=== PATIENT | male | born 1985 ===

== ENCOUNTER 2017-11-23 11:45 | Emergency (ER) | payer OTHER ==
[2017-11-23 12:24] VITALS: RESP 18
--- NOTE | 2017-11-23 13:09 | ED ---
General Adult HPI - General Chief complaint: Urogenital Stated complaint: Pain when urinating Time Seen by Provider: 11/23/17 12:28 Source: patient, RN notes reviewed Mode of arrival: ambulatory Limitations: no limitations - History of Present Illness Initial comments: 31-year-old male presents to the emergency department with a chief complaint of pain with urination. He states that he has had this for the past 3 or 4 days. He was seen at [facility] on Thursday where he underwent STD testing. He states that his results are not back but he was given treatment. He does not believe that this is what is causing his issue. He states he only has pain in the penis. There is no pain in the bladder no pain in the back. He states that he has never had this issue before. He states that he was concerned due to the continued symptoms so he thought that he should be seen. Patient denies any recent fever, chills, shortness of breath, chest pain, back pain, abdominal pain , nausea vomiting, numbness or tingling, dysuria or hematuria, constipation or diarrhea, headaches or visual changes, or any other current symptoms. - Related Data Allergies Allergy/AdvReac Type Severity Reaction Status Date / Time No Known Allergies Allergy Verified 11/23/17 12:24 Review of Systems ROS Statement: Those systems with pertinent positive or pertinent negative responses have been documented in the HPI. ROS Other: All systems not noted in ROS Statement are negative. Past Medical History Past Medical History: Hypertension Additional Past Medical History / Comment(s): hep C History of Any Multi-Drug Resistant Organisms: None Reported Past Surgical History: No Surgical Hx Reported Past Psychological History: No Psychological Hx Reported Smoking Status: Current every day smoker Past Alcohol Use History: None Reported Past Drug Use History: None Reported General Exam Limitations: no limitations General appearance: alert, in no apparent distress ENT exam: Present: mucous membranes moist Respiratory exam: Present: normal lung sounds bilaterally. Absent: respiratory distress, wheezes, rales, rhonchi, stridor Cardiovascular Exam: Present: regular rate, normal rhythm, normal heart sounds. Absent: systolic murmur, diastolic murmur, rubs, gallop, clicks GI/Abdominal exam: Present: soft, normal bowel sounds. Absent: distended, tenderness, guarding, rebound, rigid exam: Present: normal inspection, vertical testicular lie, circumcision. Absent: testicular tenderness, urethral discharge, scrotal swelling Extremities exam: Present: normal inspection Neurological exam: Present: alert, oriented X3 Psychiatric exam: Present: normal affect, normal mood Skin exam: Present: warm, dry, intact, normal color. Absent: rash Course Vital Signs 11/23/17 12:21 Temperature 98.7 F Pulse Rate 70 Respiratory 18 Rate Blood Pressure 120/47 O2 Sat by Pulse 100 Oximetry Medical Decision Making - Medical Decision Making 31-year-old male presents emergency department with a chief complaint of pain with urination. At this time Gen. exam shows a small cyst to the end of the urethra however no other abnormality noted. Since patient's pain is localized to just the penis we will have him follow-up with urology for possible etiologies for symptoms. Urinalysis is negative and he is currently waiting on a CT results from a different hospital. Patient is in agreement this plan. All questions have been answered. Patient will be discharged. - Lab Data Lab Results 11/23/17 Range/Units 13:30 Urine Color Yellow Urine Appearance Clear (Clear) Urine pH 8.0 (5.0-8.0) Ur Specific [place] 1.019 (1.001-1.035) Urine Protein Negative (Negative) Urine Glucose (UA) Negative (Negative) Urine Ketones Negative (Negative) Urine Blood Negative (Negative) Urine Nitrite Negative (Negative) Urine Bilirubin Negative (Negative) Urine Urobilinogen <2.0 (<2.0) mg/dL Ur Leukocyte Esterase Negative (Negative) Disposition Clinical Impression: Dysuria Disposition: HOME SELF-CARE Condition: Stable Instructions: Dysuria (ED) Additional Instructions: Please use medication as discussed. Please follow up with family doctor if symptoms have not improved over the next two days. Please return to the emergency room if your symptoms increase or worsen or for any other concerns. Is patient prescribed a controlled substance at d/c from ED?: No Referrals: Bonifacio Mcrae MD [Primary Care Provider] - 1-2 days Eugene Higgins MD [STAFF PHYSICIAN] - 1-2 days Time of Disposition: 14:07
[2017-11-23 13:50] LABS: Appearance,Urine Clear (Clear); Bilirubin,Urine Negative (Negative); Blood,Urine Negative (Negative); Color,Urine Yellow; Glucose,Urine (UA) Negative (Negative); Ketones,Urine Negative (Negative); Leukocyte Esterase,Urine Negative (Negative); Nitrite,Urine Negative (Negative); Protein,Urine Negative (Negative); Specific Gravity,Urine 1.019 (1.001-1.035); Urobilinogen,Urine <2.0 mg/dL (<2.0)
[2017-11-23 14:16] VITALS: BP 116/56; PULSE 72; TEMP 98.9
== END 2017-11-23 14:15 | disposition home or self-care (01) ==
LOC: EC 11:45
DX: R30.0 Dysuria (principal); F17.200 Nicotine dependence, unspecified, uncomplicated
CPT/HCPCS: 81003; 87086; 99283

== ENCOUNTER 2018-01-05 17:16 | Emergency (ER) | payer OTHER ==
[2018-01-05 17:27] VITALS: RESP 18; TEMP 98
[2018-01-05] MEDS ORDERED: SODIUM CHLORIDE 0.9% 1,000 ML with MVI, ADULT NO.4 WITH VIT K 10 ML, THIAMINE 100 MG, F... IV ONE ×4 (17:44)
--- NOTE | 2018-01-05 17:48 | ED ---
Alcohol HPI - General Chief Complaint: Alcohol Stated Complaint: overdose Time Seen by Provider: 01/05/18 17:16 Source: patient, EMS, RN notes reviewed Mode of arrival: EMS Limitations: no limitations - History of Present Illness Initial Comments: This is a 32-year-old male with a history of hep C as well as cirrhosis stage I who states he started drinking alcohol again about 3 months ago who today apparently drank a pint and a liter of liquor followed by 10 phenobarbital 10 trazodone and some temazepam. He states he doesn't want to drink anymore as try to help with some withdrawal. His girlfriend called EMS and brought here for evaluation. He denies any suicidal thought or ideation he has some mild lower abdominal pain. No nausea no vomiting fevers chills sweats no other symptoms. No trauma reported. MD Complaint: alcohol intoxication - Related Data Home Medications Medication Instructions Recorded Confirmed FLUoxetine HCL 40 mg PO DAILY 01/05/18 01/05/18 Losartan Potassium 100 mg PO DAILY 01/05/18 01/05/18 Multivitamins, Thera [Multivitamin 1 tab PO DAILY 01/05/18 01/05/18 (formulary)] PHENobarbital 30 mg PO DAILY 01/05/18 01/05/18 Temazepam [Restoril] 15 mg PO HS 01/05/18 01/05/18 buPROPion XL [Wellbutrin Xl] 300 mg PO DAILY 01/05/18 01/05/18 busPIRone HCL 15 mg PO QID 01/05/18 01/05/18 traMADol HCL [Ultram] 50 mg PO TID PRN 01/05/18 01/05/18 Allergies Allergy/AdvReac Type Severity Reaction Status Date / Time No Known Allergies Allergy Verified 01/05/18 17:30 Review of Systems ROS Statement: Those systems with pertinent positive or pertinent negative responses have been documented in the HPI. ROS Other: All systems not noted in ROS Statement are negative. Past Medical History Past Medical History: Hypertension Additional Past Medical History / Comment(s): hep C History of Any Multi-Drug Resistant Organisms: None Reported Past Surgical History: No Surgical Hx Reported Past Psychological History: Anxiety, PTSD Smoking Status: Former smoker Past Alcohol Use History: Daily Past Drug Use History: None Reported General Exam - General Exam Comments Initial Comments: Is a well-developed well-nourished awake alert but somewhat lethargic male he does have the smell of alcohol conjoiners on his breath Limitations: no limitations General appearance: alert, lethargic Head exam: Present: atraumatic, normocephalic, normal inspection Eye exam: Present: normal appearance, PERRL, EOMI. Absent: scleral icterus, conjunctival injection, periorbital swelling ENT exam: Present: normal exam, mucous membranes moist Neck exam: Present: normal inspection. Absent: tenderness, meningismus, lymphadenopathy Respiratory exam: Present: normal lung sounds bilaterally. Absent: respiratory distress, wheezes, rales, rhonchi, stridor Cardiovascular Exam: Present: regular rate, normal rhythm, normal heart sounds. Absent: systolic murmur, diastolic murmur, rubs, gallop, clicks GI/Abdominal exam: Present: soft, normal bowel sounds. Absent: distended, tenderness, guarding, rebound, rigid Extremities exam: Present: normal inspection, full ROM, normal capillary refill. Absent: tenderness, pedal edema, joint swelling, calf tenderness Back exam: Present: normal inspection Neurological exam: Present: alert, oriented X3, CN II-XII intact Psychiatric exam: Present: normal affect, normal mood Skin exam: Present: warm, dry, intact, normal color. Absent: rash Course Vital Signs 01/05/18 01/05/18 17:26 18:30 Temperature 98.0 F Pulse Rate 104 H 80 Respiratory 18 18 Rate Blood Pressure 123/81 123/81 O2 Sat by Pulse 94 L Oximetry Medical Decision Making - Medical Decision Making Reevaluation patient reveals he remains awake more alert he is able ably without difficulty. Patient is refusing to stay for any further workup at this time he will be leaving his medical advice. He is fully aware of the situation and excess responsibility. The patient did leave with a ride. - Lab Data Result diagrams: 01/05/18 17:47 Lab Results 01/05/18 01/05/18 01/05/18 Range/Units 17:47 17:47 17:47 WBC 8.3 (3.8-10.6) k/uL RBC 5.49 (4.30-5.90) m/uL Hgb 15.7 (13.0-17.5) gm/dL Hct 48.0 (39.0-53.0) % MCV 87.3 (80.0-100.0) fL MCH 28.5 (25.0-35.0) pg MCHC 32.6 (31.0-37.0) g/dL RDW 13.9 (11.5-15.5) % Plt Count 275 (150-450) k/uL Neutrophils % 51 % Lymphocytes % 35 % Monocytes % 7 % Eosinophils % 1 % Basophils % 1 % Neutrophils # 4.2 (1.3-7.7) k/uL Lymphocytes # 2.9 (1.0-4.8) k/uL Monocytes # 0.6 (0-1.0) k/uL Eosinophils # 0.1 (0-0.7) k/uL Basophils # 0.1 (0-0.2) k/uL PT 10.6 (9.0-12.0) sec INR 1.1 (<1.2) Magnesium 2.5 H (1.6-2.3) mg/dL Amylase 120 H (30-110) U/L Lipase 168 (23-300) U/L Salicylates 1.2 mg/dL Acetaminophen <10.0 ug/mL Serum Alcohol 236 H* mg/dL - EKG Data -: EKG Interpreted by Ia EKG shows normal: sinus rhythm (EKG shows normal sinus rhythm of 88 RI interval 138 QRS duration 86 QT since QTC 344/416 minimal. Here for LVH) Disposition Clinical Impression: Alcoholic intoxication Disposition: Left Against Medical Advice Condition: Stable Instructions: Alcohol Intoxication (ED) Is patient prescribed a controlled substance at d/c from ED?: No Referrals: Bonifacio Mcrae MD [Primary Care Provider] - 1-2 days
[2018-01-05 18:09] LABS: Acetaminophen <10.0 ug/mL; Amylase 120 U/L (30-110); Basophils # (A) 0.1 k/uL (0-0.2); Basophils % (A) 1 %; Eosinophils # (A) 0.1 k/uL (0-0.7); Eosinophils % (A) 1 %; HGB 15.7 gm/dL (13.0-17.5); Lipase 168 U/L (23-300); Lymphocytes # (A) 2.9 k/uL (1.0-4.8); Lymphocytes % (A) 35 %; MCH 28.5 pg (25.0-35.0); MCHC 32.6 g/dL (31.0-37.0); MCV 87.3 fL (80.0-100.0); Magnesium 2.5 mg/dL (1.6-2.3); Mean Platelet Volume 6.8; Monocytes # (A) 0.6 k/uL (0-1.0); Monocytes % (A) 7 %; Neutrophils # (A) 4.2 k/uL (1.3-7.7); Neutrophils % (A) 51 %; Platelet Count 275 k/uL (150-450); RBC 5.49 m/uL (4.30-5.90); RDW 13.9 % (11.5-15.5); Salicylate 1.2 mg/dL; WBC 8.3 k/uL (3.8-10.6)
[2018-01-05 18:23] LABS: Alcohol 236 mg/dL
[2018-01-05 18:32] LABS: INR 1.1 (<1.2); Prothrombin Time 10.6 sec (9.0-12.0)
[2018-01-05 20:12] VITALS: BP 128/94; PULSE 84
[2018-01-06 00:48] LABS: ALT 359 U/L (21-72); AST 185 U/L (17-59); Albumin 4.8 g/dL (3.5-5.0); Alkaline Phosphatase 67 U/L (38-126); Anion Gap 15 mmol/L; Blood Urea Nitrogen 25 mg/dL (9-20); Calcium 9.9 mg/dL (8.4-10.2); Carbon Dioxide 19 mmol/L (22-30); Chloride 110 mmol/L (98-107); Glucose 94 mg/dL (74-99); Sodium 144 mmol/L (137-145); Total Bilirubin 0.5 mg/dL (0.2-1.3); Total Protein 8.6 g/dL (6.3-8.2)
[2018-01-06 00:56] LABS: Potassium 5.1 mmol/L (3.5-5.1)
== END 2018-01-05 20:13 | disposition left against medical advice (07) ==
LOC: EC 17:16
DX: F10.129 Alcohol abuse with intoxication, unspecified (principal); Y90.7 Blood alcohol level of 200-239 mg/100 ml; I10 Essential (primary) hypertension; F41.9 Anxiety disorder, unspecified; Z53.29 Procedure and treatment not carried out because of patient's decision for other reasons; Z79.899 Other long term (current) drug therapy; Z87.891 Personal history of nicotine dependence
CPT/HCPCS: 99284; 96365; 96366; 36415; 93005; 82150; 83690; 83735; 85025; 85610; 83520 ×2; 80184; G0480; J3411; 80053; 80320

== ENCOUNTER 2019-03-05 10:40 | Emergency (ER) | payer OTHER ==
[2019-03-05 10:47] VITALS: RESP 16
[2019-03-05] MEDS ORDERED: ORPHENADRINE 30 MG/ML 2 ML VIAL IM STA (11:40)
[2019-03-05] MEDS ORDERED: HYDROcodone/APAP 5-325MG 1 EACH TAB PO STA (11:40)
[2019-03-05] MEDS ORDERED: KETOROLAC 30 MG/ML 1 ML VIAL IM STA (11:40)
--- NOTE | 2019-03-05 12:59 | XR ---
EXAMINATION TYPE: XR chest 2V DATE OF EXAM ORDERED: 03/05/2019 HISTORY: fall, rib and spine pain. REFERENCE: None. FINDINGS: The lungs are clear. Pleural spaces are clear. Heart size is normal. No pneumothorax is evident. IMPRESSION: NORMAL CHEST.
--- NOTE | 2019-03-05 13:10 | XR ---
EXAMINATION TYPE: XR thoracic spine 2V , 3 VIEWS DATE OF EXAM ORDERED: 03/05/2019 HISTORY: fall, rib and spine pain. COMPARISON: None. FINDINGS: The upper thoracic spine is poorly visualized in the lateral projection. Visualized portions of the thoracic spine demonstrate normal vertebral body height and alignment. The re is a mild dextroscoliosis. Prevertebral soft tissues are normal. The pedicles are intact. IMPRESSION: NO ACUTE OSSEOUS LESION.
--- NOTE | 2019-03-05 13:11 | XR ---
EXAMINATION TYPE: XR lumbar spine 2 or 3V , 3 VIEWS DATE OF EXAM ORDERED: 03/05/2019 HISTORY: fall, rib and spine pain. COMPARISON: None. FINDINGS: Vertebral body height and alignment are maintained. There is no spondylolisthesis or spond ylolysis. Facets appear unremarkable. Pedicles are intact. IMPRESSION: NO ACUTE OSSEOUS LESION.
--- NOTE | 2019-03-05 13:35 | ED ---
Back Pain HPI - General Chief Complaint: Back Pain/Injury Stated Complaint: Fall down stairs, head injury, back pain Time Seen by Provider: 03/05/19 10:52 Source: patient, RN notes reviewed, old records reviewed Limitations: no limitations - History of Present Illness Initial Comments: 33 year old male, presents today for concern for back and neck pain and head injury. Patient reports that he slipped going downstairs, and landed on his back. Patient reports no loss of consciousness, and reports that patient does feel confused and dazed after they injury. Neighbors helped him up. Patient reports no abdominal tenderness. - Related Data Home Medications Medication Instructions Recorded Confirmed FLUoxetine HCL 40 mg PO DAILY 01/05/18 01/05/18 Losartan Potassium 100 mg PO DAILY 01/05/18 01/05/18 Multivitamins, Thera [Multivitamin 1 tab PO DAILY 01/05/18 01/05/18 (formulary)] PHENobarbital 30 mg PO DAILY 01/05/18 01/05/18 Temazepam [Restoril] 15 mg PO HS 01/05/18 01/05/18 buPROPion XL [Wellbutrin Xl] 300 mg PO DAILY 01/05/18 01/05/18 busPIRone HCL 15 mg PO QID 01/05/18 01/05/18 traMADol HCL [Ultram] 50 mg PO TID PRN 01/05/18 01/05/18 Previous Rx's Medication Instructions Recorded Cyclobenzaprine [Flexeril] 10 mg PO TID #12 tab 03/05/19 Ibuprofen 600 mg PO TID #20 tablet 03/05/19 Allergies Allergy/AdvReac Type Severity Reaction Status Date / Time No Known Allergies Allergy Verified 03/05/19 10:47 Review of Systems ROS Statement: Those systems with pertinent positive or pertinent negative responses have been documented in the HPI. ROS Other: All systems not noted in ROS Statement are negative. Past Medical History Past Medical History: Hypertension Additional Past Medical History / Comment(s): hep C History of Any Multi-Drug Resistant Organisms: None Reported Past Surgical History: No Surgical Hx Reported Past Psychological History: Anxiety, PTSD Smoking Status: Former smoker Past Alcohol Use History: Daily Past Drug Use History: None Reported General Exam - General Exam Comments Initial Comments: 33 year old male, no distress. Limitations: no limitations General appearance: alert, in no apparent distress Head exam: Present: atraumatic, normocephalic, normal inspection Eye exam: Present: normal appearance, PERRL, EOMI. Absent: scleral icterus, conjunctival injection, periorbital swelling ENT exam: Present: normal exam, mucous membranes moist Neck exam: Present: normal inspection. Absent: tenderness, meningismus, lymphadenopathy Respiratory exam: Present: normal lung sounds bilaterally. Absent: respiratory distress, wheezes, rales, rhonchi, stridor Cardiovascular Exam: Present: regular rate, normal rhythm, normal heart sounds. Absent: systolic murmur, diastolic murmur, rubs, gallop, clicks GI/Abdominal exam: Present: soft, normal bowel sounds. Absent: distended, tenderness, guarding, rebound, rigid Extremities exam: Present: normal inspection, full ROM, normal capillary refill. Absent: tenderness, pedal edema, joint swelling, calf tenderness Back exam: Present: normal inspection Neurological exam: Present: alert, oriented X3, CN II-XII intact Course Vital Signs 03/05/19 03/05/19 03/05/19 10:46 11:00 14:23 Temperature 98.1 F 98.2 F Pulse Rate 88 76 81 Respiratory 16 16 16 Rate Blood Pressure 129/67 132/76 127/72 O2 Sat by Pulse 98 99 98 Oximetry Medical Decision Making - Medical Decision Making 33 year old male, presents today for concern for back and head pain after slip and fall over stairs. Patient has tenderness over back and posterior neck. Denies saddle anesthesia. Patient was given IM toradol, norflex and one pain pill. Patient imaging studies of spine and brain are unremarkable. Patient advised to follow up with PCP. Return parameters discussed. - Radiology Data Radiology results: report reviewed Normal CT brain and cspine. No fracture, dislocation or intracranial hemorrhage. Thoracic spine, lumbar spine and CXR are normal, no fracture. CXR is negative for cardiopulmonary process. Disposition Clinical Impression: Back pain, Fall Disposition: HOME SELF-CARE Condition: Good Instructions (If sedation given, give patient instructions): Acute Low Back Pain (ED) Additional Instructions: Patient advised to follow-up with a primary care doctor. Return to emergency department if any alarming signs or symptoms occur. Prescriptions: Cyclobenzaprine [Flexeril] 10 mg PO TID #12 tab Ibuprofen 600 mg PO TID #20 tablet Is patient prescribed a controlled substance at d/c from ED?: No Referrals: None,Stated [Primary Care Provider] - 1-2 days Time of Disposition: 14:05
--- NOTE | 2019-03-05 13:48 | CT ---
EXAMINATION TYPE: CT brain anabella wo con DATE OF EXAM: 03/05/2019 COMPARISON: NONE HISTORY: Fall CT DLP: 1436.1 mGycm Automated exposure control for dose reduction was used. TECHNIQUE: CT scan of the head and cervical spine are performed without contrast. FINDINGS: BRAIN: Central structures are midline. There is no evidence of hydrocephalus. No acute focal lesion, mass effect or midline shift is seen. I do not see evidence of intracranial blood. There is mucoperiosteal thickening involving both maxillary sinuses and the ethmoid sinuses. The mast oids air cells are clear. The bony calvarium is intact. IMPRESSION: 1. NO ACUTE INTRACRANIAL ABNORMALITY. 2. 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 CERVICAL SPINE: Visualized portions of the lungs are clear. Prevertebral soft tissues are normal. Vertebral body height and alignment are maintained. Atlantoaxial relationships are normal. No significant degenerative changes seen. No protrusions are evident. No fractures are seen. IMPRESSION: NORMAL CT SCAN OF THE CERVICAL SPINE.
[2019-03-05 14:23] VITALS: BP 127/72; PULSE 81; TEMP 98.2
== END 2019-03-05 14:30 | disposition home or self-care (01) ==
LOC: EC 10:40
DX: M54.9 Dorsalgia, unspecified (principal); F41.9 Anxiety disorder, unspecified; I10 Essential (primary) hypertension; Z79.899 Other long term (current) drug therapy; Z87.891 Personal history of nicotine dependence; W10.9XXA Fall (on) (from) unspecified stairs and steps, initial encounter
CPT/HCPCS: 72070; 72100; 71046; 72125; 70450; 99284; 96372 ×2; J2360; J1885

== ENCOUNTER 2019-09-08 11:55 | Emergency (ER) | payer OTHER ==
[2019-09-08 12:07] VITALS: BP 143/91; PULSE 80; RESP 12; TEMP 98
[2019-09-08] MEDS ORDERED: SODIUM CHLORIDE 0.9% 1,000 ML IV ONE (12:49)
--- NOTE | 2019-09-08 12:57 | ED ---
General Adult HPI - General Chief complaint: Overdose Stated complaint: Overdose Time Seen by Provider: 09/08/19 12:00 Source: patient, EMS, RN notes reviewed, old records reviewed Mode of arrival: EMS Limitations: no limitations - History of Present Illness Initial comments: This is a 33-year-old male who presents emergency department after overdosing on heroin. When he EMS arrived he was breathing about 2 times a minute I gave the patient Narcan and he became alert and oriented. Currently patient only complains of nausea and states he hasn't been here for a while and decided to try to get today. Patient denies any headache patient chest pain difficulty breathing first breath per patient denies any recent fever chills or cough. Patient denies any other drug use. - Related Data Home Medications Medication Instructions Recorded Confirmed FLUoxetine HCL 40 mg PO DAILY 01/05/18 01/05/18 Losartan Potassium 100 mg PO DAILY 01/05/18 01/05/18 Multivitamins, Thera [Multivitamin 1 tab PO DAILY 01/05/18 01/05/18 (formulary)] PHENobarbital 30 mg PO DAILY 01/05/18 01/05/18 Temazepam [Restoril] 15 mg PO HS 01/05/18 01/05/18 buPROPion XL [Wellbutrin Xl] 300 mg PO DAILY 01/05/18 01/05/18 busPIRone HCL 15 mg PO QID 01/05/18 01/05/18 traMADol HCL [Ultram] 50 mg PO TID PRN 01/05/18 01/05/18 Previous Rx's Medication Instructions Recorded Cyclobenzaprine [Flexeril] 10 mg PO TID #12 tab 03/05/19 Ibuprofen 600 mg PO TID #20 tablet 03/05/19 Allergies Allergy/AdvReac Type Severity Reaction Status Date / Time No Known Allergies Allergy Verified 09/08/19 12:01 Review of Systems ROS Statement: Those systems with pertinent positive or pertinent negative responses have been documented in the HPI. ROS Other: All systems not noted in ROS Statement are negative. Past Medical History Past Medical History: Hypertension Additional Past Medical History / Comment(s): hep C History of Any Multi-Drug Resistant Organisms: None Reported Past Surgical History: No Surgical Hx Reported Past Psychological History: Anxiety, PTSD Smoking Status: Former smoker Past Alcohol Use History: Daily Past Drug Use History: None Reported, Heroin General Exam - General Exam Comments Initial Comments: GENERAL: Patient is well-developed and well-nourished. Patient is nontoxic and well-hydr ated and is in mild distress. ENT: Neck is soft and supple. No significant lymphadenopathy is noted. Oropharynx is clear. Moist mucous membranes. Neck has full range of motion without eliciting any pain. EYES: The sclera were anicteric and conjunctiva were pink and moist. Extraocular movements were intact and pupils were equal round and reactive to light. Eyelids were unremarkable. PULMONARY: Unlabored respirations. Good breath sounds bilaterally. No audible rales rhonchi or wheezing was noted. CARDIOVASCULAR: There is a regular rate and rhythm without any murmurs gallops or rubs. ABDOMEN: Soft and nontender with normal bowel sounds. SKIN: Skin is clear with no lesions or rashes and otherwise unremarkable. NEUROLOGIC: Patient is alert and oriented x3. Cranial nerves II through XII are grossly intact. Motor and sensory are also intact. Normal speech, volume and content. Symmetrical smile. MUSCULOSKELETAL: Normal extremities with adequate strength and full range of motion. No lower extremity swelling or edema. No calf tenderness. LYMPHATICS: No significant lymphadenopathy is noted PSYCHIATRIC: Normal psychiatric evaluation. Limitations: no limitations Course Vital Signs 09/08/19 12:02 Temperature 98 F Pulse Rate 80 Respiratory 12 Rate Blood Pressure 143/91 O2 Sat by Pulse 100 Oximetry Medical Decision Making - Medical Decision Making Patient is alert and oriented no longer nauseated or vomiting. Patient has no complaint. - Lab Data Lab Results 09/08/19 Range/Units 13:40 Urine Opiates Screen Detected H (NotDetected) Ur Oxycodone Screen Not Detected (NotDetected) Urine Methadone Screen Not Detected (NotDetected) Ur Propoxyphene Screen Not Detected (NotDetected) Ur Barbiturates Screen Detected H (NotDetected) U Tricyclic Antidepress Not Detected (NotDetected) Ur Phencyclidine Scrn Not Detected (NotDetected) Ur Amphetamines Screen Detected H (NotDetected) U Methamphetamines Scrn Detected H (NotDetected) U Benzodiazepines Scrn Detected H (NotDetected) Urine Cocaine Screen Detected H (NotDetected) U Marijuana (THC) Screen Not Detected (NotDetected) Disposition Clinical Impression: Heroin overdose, Cocaine abuse, Methamphetamine abuse Disposition: HOME SELF-CARE Instructions (If sedation given, give patient instructions): Adult Overdose (ED) Additional Instructions: Patient should go to a rehabilitation facility immediately Is patient prescribed a controlled substance at d/c from ED?: No Referrals: Bonifacio Mcrae MD [Primary Care Provider] - 1-2 days Time of Disposition: 15:03
[2019-09-08] MEDS ORDERED: ONDANSETRON 4 MG/2 ML VIAL IVP STA ×2 (13:02→13:06)
[2019-09-08 14:29] LABS: Cocaine Screen,Urine Detected (NotDetected); Phencyclidine Screen,Urine Not Detected (NotDetected); Urn Cannabinoid Scrn Not Detected (NotDetected)
[2019-09-08 14:30] LABS: Amphetamine Screen,Urine Detected (NotDetected); Barbiturate Screen,Urine Detected (NotDetected); Benzodiazepines Screen,Urine Detected (NotDetected); Methadone Screen, Urine Not Detected (NotDetected); Opiate Screen,Urine Detected (NotDetected); Oxycodone Screen, Urine Not Detected (NotDetected); Tricyclic Antidepressant,Urine Not Detected (NotDetected)
== END 2019-09-08 15:39 | disposition home or self-care (01) ==
LOC: EC 11:55
DX: T40.1X1A Poisoning by heroin, accidental (unintentional), initial encounter (principal); F14.10 Cocaine abuse, uncomplicated; F15.10 Other stimulant abuse, uncomplicated; I10 Essential (primary) hypertension; F41.9 Anxiety disorder, unspecified; F43.10 Post-traumatic stress disorder, unspecified; Z87.891 Personal history of nicotine dependence; Z79.899 Other long term (current) drug therapy
CPT/HCPCS: 80306; 99284; 96374; J2405

== ENCOUNTER 2020-07-27 04:31 | Emergency (ER) | payer OTHER ==
[2020-07-27 04:40] VITALS: TEMP 99
[2020-07-27] MEDS ORDERED: Acetaminophen-Codeine 300-30mg TAB PO STA (05:12)
[2020-07-27] MEDS ORDERED: ACET/COD 300 MG/30 MG STARTER PACK 6 TAB BTL PO STA (05:12)
[2020-07-27] MEDS ORDERED: KETOROLAC 15 MG/ML 1 ML VIAL IM STA (05:12)
[2020-07-27] MEDS ORDERED: diazePAM 5 MG TAB PO STA (05:12)
--- NOTE | 2020-07-27 05:13 | ED ---
Extremity Problem HPI - General Chief complaint: Back Pain/Injury Stated complaint: Upper Back Pain Time Seen by Provider: 07/27/20 04:31 Source: patient, RN notes reviewed, old records reviewed Mode of arrival: ambulatory Limitations: no limitations - History of Present Illness Initial comments: This is a 34-year-old male with nonspecific pain. Patient is cramping and pain in his left shoulder his back maybe in his chest. Patient has history of disc disease but no recent trauma no fevers. Denies drug or alcohol abuse, denies IV drug abuse. He states pain is worsening moves his left shoulder but also there when he is not moving his arm at all. No shortness of breath no sweating or nausea vomiting or diarrhea. No modifying factors for pain at home MD Complaint: extremity pain, joint pain -: days(s) Location: left, upper extremity -: Yes arthralgia Radiation: proximal Severity scale (1-10): 4 Quality: stabbing, aching Consistency: intermittent Improves with: immobilization Associated Symptoms: arthralgias - Related Data Home Medications Medication Instructions Recorded Confirmed FLUoxetine HCL 40 mg PO DAILY 01/05/18 01/05/18 Losartan Potassium 100 mg PO DAILY 01/05/18 01/05/18 Multivitamins, Thera [Multivitamin 1 tab PO DAILY 01/05/18 01/05/18 (formulary)] PHENobarbital 30 mg PO DAILY 01/05/18 01/05/18 Temazepam [Restoril] 15 mg PO HS 01/05/18 01/05/18 buPROPion XL [Wellbutrin Xl] 300 mg PO DAILY 01/05/18 01/05/18 busPIRone HCL 15 mg PO QID 01/05/18 01/05/18 traMADol HCL [Ultram] 50 mg PO TID PRN 01/05/18 01/05/18 Previous Rx's Medication Instructions Recorded Cyclobenzaprine [Flexeril] 10 mg PO TID #12 tab 03/05/19 Ibuprofen 600 mg PO TID #20 tablet 03/05/19 Allergies Allergy/AdvReac Type Severity Reaction Status Date / Time No Known Allergies Allergy Verified 07/31/20 21:11 Review of Systems ROS Statement: Those systems with pertinent positive or pertinent negative responses have been documented in the HPI. ROS Other: All systems not noted in ROS Statement are negative. Past Medical History Past Medical History: Hypertension Additional Past Medical History / Comment(s): hep C History of Any Multi-Drug Resistant Organisms: None Reported Past Surgical History: No Surgical Hx Reported Past Psychological History: Anxiety, PTSD Smoking Status: Current every day smoker, Vaper Past Alcohol Use History: Daily Past Drug Use History: None Reported, Heroin General Exam Limitations: no limitations General appearance: alert, in no apparent distress, anxious Head exam: Present: atraumatic, normocephalic, normal inspection Eye exam: Present: normal appearance, PERRL, EOMI. Absent: scleral icterus, conjunctival injection, periorbital swelling ENT exam: Present: normal exam, mucous membranes moist Neck exam: Present: normal inspection. Absent: tenderness, meningismus, lymphadenopathy Respiratory exam: Present: normal lung sounds bilaterally. Absent: respiratory distress, wheezes, rales, rhonchi, stridor Cardiovascular Exam: Present: regular rate, normal rhythm, normal heart sounds. Absent: systolic murmur, diastolic murmur, rubs, gallop, clicks GI/Abdominal exam: Present: soft, normal bowel sounds. Absent: distended, tenderness, guarding, rebound, rigid Extremities exam: Present: normal inspection, full ROM, normal capillary refill. Absent: tenderness, pedal edema, joint swelling, calf tenderness Back exam: Present: normal inspection Neurological exam: Present: alert, oriented X3, CN II-XII intact Psychiatric exam: Present: normal affect, normal mood Skin exam: Present: warm, dry, intact, normal color. Absent: rash Course Vital Signs 07/27/20 07/27/20 04:32 06:37 Temperature 99 F Pulse Rate 100 76 Respiratory 22 18 Rate Blood Pressure 147/86 124/77 O2 Sat by Pulse 98 98 Oximetry - Reevaluation(s) Reevaluation #1: Medical record is reviewed Patient reevaluated in the emergency department, symptoms resolved Patient informed results questions answered Medical Decision Making - Medical Decision Making 34 male with back pain. Imaging is negative patient feels improved and can be discharged home - EKG Data -: EKG Interpreted by Me (EKG shows sinus rhythm 88 [place] 138 QRS 98 QTc 418) - Radiology Data Radiology results: report reviewed (Chest x-ray left shoulder x-ray negative for acute disease), image reviewed Disposition Clinical Impression: Left shoulder pain, Cervical strain Disposition: HOME SELF-CARE Condition: Good Instructions (If sedation given, give patient instructions): Cervical Strain (ED), Shoulder Sprain (ED), Shoulder Pain (ED) Is patient prescribed a controlled substance at d/c from ED?: No Referrals: Addison Mondragon DO [Primary Care Provider] - 1-2 days
--- NOTE | 2020-07-27 05:59 | XR ---
EXAM: XR Left Shoulder Complete, 3 Views CLINICAL HISTORY: ITS.REASON XR Reason: pain TECHNIQUE: 3 views of the left shoulder. COMPARISON: Chest radiograph from 03/05/19 FINDINGS: Bones/joints: Unremarkable. No fracture. No dislocation. Soft tissues: Unremarkable. IMPRESSION: Normal left shoulder x-rays.
--- NOTE | 2020-07-27 05:59 | XR ---
EXAM: XR Chest, 2 Views CLINICAL HISTORY: CHEST PAIN TECHNIQUE: Frontal and lateral views of the chest. COMPARISON: 03/06/19 FINDINGS: Lungs: Unremarkable. No consolidation. Pleural space: Unremarkable. No pneumothorax. Heart: Unremarkable. No cardiomegaly. Mediastinum: Unremarkable. Bones/joints: Unremarkable. IMPRESSION: No acute findings or substantial change
[2020-07-27] MEDS ORDERED: HYDROmorphone 1 MG/ML 1 ML SYRINGE IM STA (06:16)
[2020-07-27 06:42] VITALS: BP 124/77; PULSE 76; RESP 18
== END 2020-07-27 06:42 | disposition home or self-care (01) ==
LOC: EC 04:31
DX: S16.1XXA Strain of muscle, fascia and tendon at neck level, initial encounter (principal); M25.512 Pain in left shoulder; I10 Essential (primary) hypertension; F17.200 Nicotine dependence, unspecified, uncomplicated; X58.XXXA Exposure to other specified factors, initial encounter
CPT/HCPCS: 93005; 73030; 71046; 99283; 96372 ×2; J1170; J1885

== ENCOUNTER 2020-07-31 20:51 | Emergency (ER) | payer OTHER ==
[2020-07-31 21:11] VITALS: TEMP 98.3
[2020-07-31] MEDS ORDERED: MORPHINE SULFATE 4 MG/ML SYRINGE IV STA (22:31)
[2020-07-31] MEDS ORDERED: SODIUM CHLORIDE 0.9% 1,000 ML IV STA (22:31)
[2020-07-31] MEDS ORDERED: DEXAMETHASONE SOD PHOSPHATE 10 MG/ML 1 ML VIAL IV STA (22:32)
--- NOTE | 2020-07-31 22:32 | ED ---
Back Pain HPI - General Chief Complaint: Back Pain/Injury Stated Complaint: L Shoulder Pain, Poss Anxiety Time Seen by Provider: 07/31/20 21:54 Source: patient, RN notes reviewed, old records reviewed Limitations: no limitations - History of Present Illness Initial Comments: This is a 34-year-old male to the ER for evaluation patient presents today for evaluation regards to severe left shoulder pain back pain chest pain. Patient is prior ER visits for this in the past with no acute cause found pain has been persistent. Patient has no recent travel history no fevers no traumas. Patient states his pain has been persistent since it started and is been something is may been doing with for years maybe had neck related issue. She'll related issue. Patient has no medications takes no drugs or alcohol, no medical history MD Complaint: back pain -: month(s) Similar Symptoms Previously: Yes Place: home Radiation: none Severity: severe Severity scale (1-10): 8 Quality: sharp Consistency: constant Improves With: none Worsens With: movement Context: while lifting, turning/twisting Associated Symptoms: denies other symptoms - Related Data Home Medications Medication Instructions Recorded Confirmed FLUoxetine HCL 40 mg PO DAILY 01/05/18 01/05/18 Losartan Potassium 100 mg PO DAILY 01/05/18 01/05/18 Multivitamins, Thera [Multivitamin 1 tab PO DAILY 01/05/18 01/05/18 (formulary)] PHENobarbital 30 mg PO DAILY 01/05/18 01/05/18 Temazepam [Restoril] 15 mg PO HS 01/05/18 01/05/18 buPROPion XL [Wellbutrin Xl] 300 mg PO DAILY 01/05/18 01/05/18 busPIRone HCL 15 mg PO QID 01/05/18 01/05/18 traMADol HCL [Ultram] 50 mg PO TID PRN 01/05/18 01/05/18 Previous Rx's Medication Instructions Recorded Cyclobenzaprine [Flexeril] 10 mg PO TID #12 tab 03/05/19 Ibuprofen 600 mg PO TID #20 tablet 03/05/19 Allergies Allergy/AdvReac Type Severity Reaction Status Date / Time No Known Allergies Allergy Verified 07/31/20 21:11 Review of Systems ROS Statement: Those systems with pertinent positive or pertinent negative responses have been documented in the HPI. ROS Other: All systems not noted in ROS Statement are negative. Past Medical History Past Medical History: Hypertension Additional Past Medical History / Comment(s): hep C ,chronic neck and back pain History of Any Multi-Drug Resistant Organisms: None Reported Past Surgical History: No Surgical Hx Reported Past Psychological History: Anxiety, PTSD Smoking Status: Current every day smoker, Vaper Past Alcohol Use History: Daily Past Drug Use History: Heroin General Exam Limitations: no limitations General appearance: alert, in no apparent distress, anxious Head exam: Present: atraumatic, normocephalic, normal inspection Eye exam: Present: normal appearance, PERRL, EOMI. Absent: scleral icterus, conjunctival injection, periorbital swelling ENT exam: Present: normal exam, mucous membranes moist Neck exam: Present: normal inspection. Absent: tenderness, meningismus, lymphadenopathy Respiratory exam: Present: normal lung sounds bilaterally. Absent: respiratory distress, wheezes, rales, rhonchi, stridor Cardiovascular Exam: Present: normal rhythm, tachycardia, normal heart sounds. Absent: systolic murmur, diastolic murmur, rubs, gallop, clicks GI/Abdominal exam: Present: soft, normal bowel sounds. Absent: distended, tenderness, guarding, rebound, rigid Extremities exam: Present: normal inspection, full ROM, normal capillary refill. Absent: tenderness, pedal edema, joint swelling, calf tenderness Back exam: Present: normal inspection Neurological exam: Present: alert, oriented X3, CN II-XII intact Psychiatric exam: Present: normal affect, normal mood Skin exam: Present: warm, dry, intact, normal color. Absent: rash Course Vital Signs 07/31/20 21:07 Temperature 98.3 F Pulse Rate 110 H Respiratory 20 Rate Blood Pressure 147/84 O2 Sat by Pulse 98 Oximetry - Reevaluation(s) Reevaluation #1: 08/01/20 00:35 Medical record is reviewed Reevaluation #2: 08/01/20 00:35 Prior ER visit is reviewed Reevaluation #3: 08/01/20 00:35 Patient has adequate pain control Reevaluation #4: 08/01/20 00:35 Patient informed of results and questions have been answered Medical Decision Making - Medical Decision Making 34 male with nonspecific shoulder back pain. Patient will continue to follow-up as an outpatient and can be discharged home - Lab Data Result diagrams: 07/31/20 22:47 07/31/20 22:47 Lab Results 07/31/20 07/31/20 07/31/20 Range/Units 22:47 22:47 22:47 WBC 8.3 (3.8-10.6) k/uL RBC 5.21 (4.30-5.90) m/uL Hgb 14.9 (13.0-17.5) gm/dL Hct 43.7 (39.0-53.0) % MCV 83.9 (80.0-100.0) fL MCH 28.6 (25.0-35.0) pg MCHC 34.0 (31.0-37.0) g/dL RDW 13.2 (11.5-15.5) % Plt Count 269 (150-450) k/uL MPV 6.8 PT 9.9 (9.0-12.0) sec INR 0.9 (<1.2) APTT 24.2 (22.0-30.0) sec D-Dimer <0.17 (<0.60) mg/L FEU Sodium 138 (137-145) mmol/L Potassium 4.3 (3.5-5.1) mmol/L Chloride 100 (98-107) mmol/L Carbon Dioxide 25 (22-30) mmol/L Anion Gap 13 mmol/L BUN 24 H (9-20) mg/dL Creatinine 0.91 (0.66-1.25) mg/dL Est GFR (CKD-EPI)AfAm >90 (>60 ml/min/1.73 sqM) Est GFR (CKD-EPI)NonAf >90 (>60 ml/min/1.73 sqM) Glucose 97 (74-99) mg/dL Calcium 9.5 (8.4-10.2) mg/dL Phosphorus 4.5 (2.5-4.5) mg/dL Magnesium 2.1 (1.6-2.3) mg/dL Total Bilirubin 0.6 (0.2-1.3) mg/dL AST 125 H (17-59) U/L ALT 234 H (4-49) U/L Alkaline Phosphatase 100 (38-126) U/L Creatine Kinase 454 H (55-170) U/L C-Reactive Protein 0.7 (<1.0) mg/dL Total Protein 8.3 H (6.3-8.2) g/dL Albumin 4.9 (3.5-5.0) g/dL - EKG Data -: EKG Interpreted by Me (EKG is sinus tach 106 RI 132 QRS 98 QTc 451) - Radiology Data Radiology results: report reviewed (CT brain C-spine and CTA of chest is negative for acute disease), image reviewed Disposition Clinical Impression: Left shoulder pain, Cervical strain Disposition: HOME SELF-CARE Condition: Good Instructions (If sedation given, give patient instructions): Chest Wall Pain (ED), Thoracic Pain (ED) Is patient prescribed a controlled substance at d/c from ED?: No Referrals: Addison Mondragon DO [Primary Care Provider] - 1-2 days
--- NOTE | 2020-07-31 23:32 | CT ---
EXAMINATION TYPE: CT brain anabella wo con DATE OF EXAM: 07/31/2020 COMPARISON: 03/05/2019 HISTORY: shoulder pain and anxiety Headache. Neck pain CT DLP: 1424.3 mGycm Automated exposure control for dose reduction was used. Ventricles and sulci appear normal. There is no mass effect nor midline shift. There is no sign of in tracranial hemorrhage. The calvarium is intact. Cervical vertebra have normal alignment. Posterior elements are intact. Facet joints appear intact. S kull base is intact. I see no bony destructive process. IMPRESSION: Normal CT scan of the brain. Normal CT scan of the cervical spine. No adverse change.
--- NOTE | 2020-07-31 23:37 | CT ---
EXAMINATION TYPE: CT angio chest DATE OF EXAM: 07/31/2020 COMPARISON: None HISTORY: left shuolder pain and anxiety CT DLP: 363.9 mGycm Automated exposure control for dose reduction was used. CONTRAST: Performed with IV Contrast, patient injected with 100 mL of Isovue 370. There are 3-D post processed images. There is no mediastinal adenopathy. There are no hilar masses. Thoracic aorta is intact. There is no aneurysm or dissection. There is normal contrast opacification of the pulmonary arteries. Heart size is normal. There is no pericardial effusion. The lungs are clear of infiltrate. There is no evidence of a pulmonary mass. There is no pleural effu mikala. The thoracic spine is intact. There is no thoracic paraspinal mass. IMPRESSION: Normal exam. No evidence of pulmonary embolism.
[2020-08-01 00:11] LABS: D-Dimer <0.17 mg/L FEU (<0.60); HCT 43.7 % (39.0-53.0); HGB 14.9 gm/dL (13.0-17.5); INR 0.9 (<1.2); MCH 28.6 pg (25.0-35.0); MCV 83.9 fL (80.0-100.0); Mean Platelet Volume 6.8; Partial Thromboplastin Time 24.2 sec (22.0-30.0); Platelet Count 269 k/uL (150-450); Prothrombin Time 9.9 sec (9.0-12.0); RBC 5.21 m/uL (4.30-5.90); RDW 13.2 % (11.5-15.5); WBC 8.3 k/uL (3.8-10.6)
[2020-08-01 00:15] LABS: ALT 234 U/L (4-49); AST 125 U/L (17-59); African American GFR (CKD) >90 (>60 ml/min/1.73 sqM); Albumin 4.9 g/dL (3.5-5.0); Alkaline Phosphatase 100 U/L (38-126); Anion Gap 13 mmol/L; Blood Urea Nitrogen 24 mg/dL (9-20); C Reactive Protein 0.7 mg/dL (<1.0); Calcium 9.5 mg/dL (8.4-10.2); Carbon Dioxide 25 mmol/L (22-30); Chloride 100 mmol/L (98-107); Creatine Kinase 454 U/L (55-170); Glucose 97 mg/dL (74-99); Magnesium 2.1 mg/dL (1.6-2.3); Non-African American GFR(CKD) >90 (>60 ml/min/1.73 sqM); Phosphorus 4.5 mg/dL (2.5-4.5); Potassium 4.3 mmol/L (3.5-5.1); Sodium 138 mmol/L (137-145); Total Bilirubin 0.6 mg/dL (0.2-1.3); Total Protein 8.3 g/dL (6.3-8.2)
[2020-08-01] MEDS ORDERED: ACET/COD 300 MG/30 MG STARTER PACK 6 TAB BTL PO STA (00:33)
[2020-08-01] MEDS ORDERED: KETOROLAC 15 MG/ML 1 ML VIAL IVP STA (00:33)
[2020-08-01] MEDS ORDERED: HYDROmorphone 1 MG/ML 1 ML SYRINGE IVP STA (00:33)
[2020-08-01 00:55] VITALS: BP 138/79; PULSE 99; RESP 18
[2020-08-01 02:08] LABS: Eosinophils # (M) 0.08 k/uL (0-0.7); Lymphocytes # (M) 2.66 k/uL (1.0-4.8); Neutrophils # (M) 5.06 k/uL (1.3-7.7); Neutrophils % (M) 61 %; Nucleated Red Blood Cells 0 /100 WBC (0-0); Total Cells Counted 100
== END 2020-08-01 01:01 | disposition home or self-care (01) ==
LOC: EC 20:51
DX: S16.1XXA Strain of muscle, fascia and tendon at neck level, initial encounter (principal); I10 Essential (primary) hypertension; F41.9 Anxiety disorder, unspecified; F17.200 Nicotine dependence, unspecified, uncomplicated; X58.XXXA Exposure to other specified factors, initial encounter
CPT/HCPCS: 36415; 93005; 85379; 80053; 82550; 83735; 84100; 84484; 85025; 85610; 85730; 86140; 72125; 70450; 71275; 99285; 96374; 96375 ×2; 96361; J2270; J1100; J1885; Q9967